=== PATIENT | male | born 1955 | race Caucasian/White ===

== ENCOUNTER 2024-08-01 11:49 | Emergency (ER) | payer OTHER ==
[2024-08-01] MEDS: Lidocaine 1% 10 ML MDV INJECT ONE (14:58)
== END 2024-08-01 14:18 | disposition home or self-care (01) ==
LOC: JD.ED 11:49
DX: S81.811A Laceration without foreign body, right lower leg, initial encounter (principal); I10 Essential (primary) hypertension; E11.9 Type 2 diabetes mellitus without complications; W26.8XXA Contact with other sharp object(s), not elsewhere classified, initial encounter; Y93.H9 Activity, other involving exterior property and land maintenance, building and construction
CPT/HCPCS: 12002; 99282; 99283; J3490